=== PATIENT | female | born 1950 | race Two or more races ===

== ENCOUNTER 2018-05-29 19:12 | Inpatient (IN) | payer BC, MEDICARE, OTHER ==
[~2018-05-29] VITALS: Ht 157.5 cm; Wt 51.3 kg
[~2018-05-29 19:12] MED LIST: VANCOMYCIN 0.75 GM in IV NS 0.9% 250 ML IV SCH
--- NOTE | 2018-05-29 19:17 | NUR ---
PT BIBRA FOR FEVER,TACHYCARDIA. PER EMS, PT WAS FOUND ON THE GROUND, TACHYCARDIC, WARM TO THE TOUCH. PT PUT ON THE VENEER GLUE JOINTER FEEDBACK AND PULSE OX. PT RESPIRATIONS TACHYPNIC, SATURATION 94% ON ROOM AIR. PT TACHYCARDIC IN 140S, PT WARM TO THE TOUCH, AXO4. LIBRADO SULTANA FROM ER .
[2018-05-29] MEDS ORDERED: PIPERACILLIN /TAZOBACTAM 3.375 G in IV D5W 50 ML IV ONE (19:30)
[2018-05-29] MEDS ORDERED: IV NS 0.9% 1,000 ML BAG IV ONE (19:30)
--- NOTE | 2018-05-29 19:30 | NUR ---
BLOOD SENT TO LAB.
[2018-05-29 19:39] LABS: BASOPHILS % (AUTO) 0.1 % (0.0-2.0); EOSINOPHILS % (AUTO) 1.6 % (0.0-6.0); HEMATOCRIT 31 % (33-45); HEMOGLOBIN 10.1 g/dL (11.5-14.8); LYMPHOCYTES # (AUTO) 0.1 /CMM (0.8-4.8); LYMPHOCYTES % (AUTO) 2.1 % (20.0-44.0); MEAN CORPUSCULAR HGB CONC 32 g/dl (31.0-36.0); MEAN CORPUSCULAR VOLUME 91 fL (82-100); MONOCYTES % (AUTO) 0.7 % (2.0-12.0); NEUTROPHILS # (AUTO) 4.8 /CMM (1.8-8.9); NEUTROPHILS % (AUTO) 95.5 % (43.0-81.0); PLATELET COUNT (AUTO) 58 /CMM (150-450); RED BLOOD CELL COUNT(AUTO) 3.44 MIL/uL (4.0-5.2)
[2018-05-29] MEDS ORDERED: PIPERACILLIN /TAZOBACTAM 3.375 G VIAL IV ONE (19:42)
[2018-05-29 19:48] LABS: CALCIUM, SERUM 7.6 mg/dL (8.5-10.1); CARBON DIOXIDE 16 mmol/L (21-32); CHLORIDE 102 mmol/L (98-107); CREATININE 0.9 mg/dL (0.6-1.3); GLUCOSE 146 mg/dL (74-106); POTASSIUM 3.8 mmol/L (3.5-5.1); SODIUM SERUM 132 mmol/L (136-145); UREA NITROGEN, BLOOD 13 mg/dL (7-18)
[2018-05-29 19:54] LABS: ALANINE AMINOTRANSFERASE 18 U/L (12-78); ALBUMIN 1.8 g/dL (3.4-5.0); ALKALINE PHOSPHATASE 324 U/L (46-116); ASPARTATE AMINOTRANSFERASE 20 U/L (15-37); BILIRUBIN,DIRECT 0.4 mg/dL (0.0-0.2); BILIRUBIN,TOTAL 0.7 mg/dL (0.2-1.0); TOTAL PROTEIN, SERUM 5.4 g/dL (6.4-8.2)
--- NOTE | 2018-05-29 19:55 | NUR ---
XRAY AT BEDSIDE.
--- NOTE | 2018-05-29 20:20 | NUR ---
URINE SAMPLE OBTAINED, SENT TO LAB.
[2018-05-29 21:00] LABS: APPEARANCE,URINE Slightly Cloudy (CLEAR); BILIRUBIN,URINE Negative (NEGATIVE); BLOOD, URINE Large Ery/uL (NEGATIVE); COLOR,URINE Yellow (YELLOW); KETONES,URINE Negative (NEGATIVE); LEUKOCYTE ESTERASE ,URINE Moderate (NEGATIVE); NITRITE, URINE Positive (NEGATIVE); PROTEIN,URINE 30 mg/dl (NEGATIVE); UGLUCOSE Negative (NEGATIVE); UROBILINOGEN,URINE 0.2 EU/dL (0.2)
[2018-05-29 21:14] LABS: BACTERIA,URINE 2+ /HPF (None Seen); SQUAMOUS EPITHELIAL CELL,UR Moderate /HPF (None Seen); WBC,URINE 51-80 /HPF (0-3)
--- NOTE | 2018-05-29 21:19 | NUR ---
RADIOLOGY AT BEDSIDE. PT REFUSING CT. ER MD AWARE.
[2018-05-29 21:40] LABS: BAND % (MANUAL) 5 % (0.0-5.0); LYMPHOCYTES % (MANUAL) 4 % (16-48); MONOCYTES % (MANUAL) 3 % (0-11.0); NEUTROPHILS % (MANUAL) 88 (42-76)
[2018-05-29] MEDS ORDERED: VANCOMYCIN 500 MG VIAL ONE (21:57)
[2018-05-29] MEDS ORDERED: MAG HYDROX/AL HYDROX/SIMETH 30 ML UDC PO PRN (22:00)
[2018-05-29] MEDS ORDERED: HYDROCODONE/APAP 5/325MG 1 EACH TABLET PO PRN (22:00)
[2018-05-29] MEDS ORDERED: IV NS 0.9% 1,000 ML IV PRN ×2 (22:00)
[2018-05-29] MEDS ORDERED: ZOLPIDEM TARTRATE 5 MG TABLET PO PRN (22:00)
[2018-05-29] MEDS ORDERED: MAGNESIUM HYDROXIDE 30 ML UDC PO PRN (22:00)
[2018-05-29] MEDS ORDERED: ONDANSETRON HCL/PF - ER 4 MG/2 ML VIAL IV ONE (22:00)
[2018-05-29] MEDS ORDERED: Z GUARD REMEDY 2 OZ OINT TP PRN (22:00)
[2018-05-29] MEDS ORDERED: ALBUTEROL FS 2.5 MG/3 ML VIAL.NEB NEB PRN (22:00)
[2018-05-29] MEDS ORDERED: VANCOMYCIN 500 MG VIAL IV ONE (22:00)
--- NOTE | 2018-05-29 22:00 | NUR ---
REPORT GIVEN TO JOAQUIM GAITAN FOR VIRI.
[2018-05-29] MEDS ORDERED: VANCOMYCIN 1 GM in IV NS 0.9% 250 ML IV ONE (22:30)
--- NOTE | 2018-05-29 22:51 | NUR ---
NURSE NOTE RECEIVED PT FROM ER VIA LEDARDEVORA ACCOMPANIED BY ER STAFF. PT IS AXOX4 ABLE TO MAKE NEEDS KNOWN. PT HAS R UPPER PICC LINE, PATENT AND INTACT WITH IVF INFUSING, PLACED BY ER NURSE. CURRENT VITALS ARE 74/37, 116, 18, 98.7, 96% ON RA. WILL LET DR. DIAZ KNOW PT HAS ARRIVED TO FLOOR. PT REFUSED BODY CHECK. ALL CURRENT NEEDS ATTENDED TO. SAFETY MEASURES IN PLACE: BED LOW LOCKED, UPPER RAILS UP, AND CALL LIGHT WITHIN REACH. WILL CONT. CLOSE MONITORING.
--- NOTE | 2018-05-29 23:25 | NUR ---
RN NOTES: CLARIFY WITH MD, HER ADMITTING ORDER IS TELE TD- NOTIFIED MD THAT PT'S BP WAS 74/37, RECHECK 64/38, PLACED PT ON T-MARSHA POSITION THEN RECHECK AFTER 15MINS, BOLUS ONGOING, RESULT IS 82/45MMHG. PER AUTOCAD OPERATOR EPIC PT WILL GO TO [facility] OR ICU, MD AWARE. SITE MANAGER NOTIFIED, CONTACTED RN SAW CLEANER,WILL RECHECK BP MANUALLY, 79/44 RIGHT ARM, 78/44 LEFT ARM. PT WILL GO TO ICU PER
--- NOTE | 2018-05-29 23:40 | NUR ---
NURSE NOTE PT. SAFELY TRANSFERRED TO ICU. REPORT GIVEN TO ARGENIS CHARGE NURSE.
[2018-05-30] VITALS (33 sets, daily range): BP systolic 79–116; BP diastolic 38–72
[2018-05-30] MEDS: ACETAMINOPHEN 325 MG TABLET PO PRN ×3 (00:22→14:39)
[2018-05-30] MEDS ORDERED: NOREPINEPHRINE 16 MG in IV D5W 500 ML IV PRN (00:30)
--- NOTE | 2018-05-30 01:04 | NUR ---
RN NOTES RECEIVED PATIENT FROM ARNIE ACEVEDO, IN BED AWAKE, ALERT AND ORIENTED. ABLE TO COMMUNICATE NEEDS VERBALLY. NO DISTRESS NOTED. BREATHING EVEN AND UNLABORED. ON 2 LPM O2 VIA NASAL CANNULA TOLERATING WELL. NO COMPLAINT OF PAIN OF THIS TIME. UNABLE TO DO SKIN ASSESSMENT. PATIENT REFUSED. VITAL SIGNS WNL. AFEBRILE WITH SKIN WARM AND DRY TO TOUCH. NEEDS ATTENDED. KEPT CLEAN AND DRY.
[2018-05-30] MEDS: IV NS 0.9% 1,000 ML IV PRN ×2 (01:30→07:05)
[2018-05-30] MEDS ORDERED: VANCOMYCIN 1 GM VIAL ONE (01:33)
--- NOTE | 2018-05-30 01:35 | NUR ---
APPLICATIONS CHEMIST. RECEIVED THE PT FROM MED/SUG .LOW BP. PT AWAKE, ALERT, FOLLOW COMMANDS. TESTING MACHINE OPERATOR SHOWING S TACH. TEMPERATURE 97.5. PT HAS SACRAL WOUND PER PT. PT REFUSED TAKE THE WOUND PICTURE, PT HAS LT SIDE COLOSTOMY BAG INTACT. PT IS VERY DEMANDING. SHE NEED SAME COLOSTOMY BAG. SHE WANTS LEAVE FROM THIS HOSPITAL. . COMPLAINT ABOUT ELECTRODES, I EXPLANT ABOUT METAL STAMPING MACHINE OPERATOR ING. DR DIAZ MADE AWARE. INF 2L BOLUS GIVEN. WILL CONTINUE TO MONITOR VITALS.
[2018-05-30] MEDS: ONDANSETRON HCL/PF 4 MG/2 ML VIAL IVP PRN ×2 (01:45→09:35)
[2018-05-30 05:04] LABS: BASOPHILS % (AUTO) 0.3 % (0.0-2.0); EOSINOPHILS % (AUTO) 0.3 % (0.0-6.0); HEMATOCRIT 28 % (33-45); HEMOGLOBIN 8.9 g/dL (11.5-14.8); LYMPHOCYTES # (AUTO) 0.4 /CMM (0.8-4.8); LYMPHOCYTES % (AUTO) 3.8 % (20.0-44.0); MEAN CORPUSCULAR HGB CONC 32 g/dl (31.0-36.0); MEAN CORPUSCULAR VOLUME 92 fL (82-100); MONOCYTES # (AUTO) 0.6 /CMM (0.1-1.30); MONOCYTES % (AUTO) 5.7 % (2.0-12.0); NEUTROPHILS # (AUTO) 9.8 /CMM (1.8-8.9); NEUTROPHILS % (AUTO) 89.9 % (43.0-81.0); PLATELET COUNT (AUTO) 70 /CMM (150-450); WHITE BLOOD COUNT (AUTO) 10.9 K/uL (4.3-11.0)
[2018-05-30 05:15] LABS: CREATININE 0.7 mg/dL (0.6-1.3); MAGNESIUM 1.4 mg/dL (1.8-2.4); POTASSIUM 3.8 mmol/L (3.5-5.1)
[2018-05-30] MEDS ORDERED: Sodium Phosphate 15 MMOL in IV D5W 250 ML IV ONE (06:00)
[2018-05-30] MEDS ORDERED: Calcium Gluconate 1GM/10ML 4.65 MEQ in IV NS 0.9% 50 ML IV ONE (06:00)
--- NOTE | 2018-05-30 06:28 | NUR ---
RN NOTES PATIENT REFUSED TO BE CLEAN. REFUSED TO CHANGE COLOSTOMY BAG. LOOKING FOR THE SAME COLOSTOMY BAG SHE IS WEARING, SHE IS AFRAID OTHER COLOSTOMY BAG THAT SHE IS WEARING WILL LEAK. SHE WANTS TO BE CLEAN AT 8AM. PATIENT SAID SHE STILL WANTS TO SLEEP. NO SKIN ASSESSMENT DONE YET PATIENT CONTINUOUSLY REFUSED TO BE ASSESSED. WILL ENDORSE TO NEXT SHIFT.
[2018-05-30] MEDS: Magnesium 1GM/D5W 100ML PREMIX 100 ML IV SCH ×3 (06:41→11:07)
[2018-05-30] MEDS ORDERED: FEE PK DOSING 1 MIN EA MC ONE (07:30)
--- NOTE | 2018-05-30 08:52 | NUR ---
WOUND CARE CONSULT: PT PRESENTS WITH ANTERIOR CHEST SKIN TEAR AND SACRAL DIMPLED AREA WITH FRAGILE SCAR, PRESENT ON ADMISSION. PT STATES WAS FOLLOWED BY PLASTIC SURGEON PREVIOUSLY FOR SACRAL WOUND BUT REFUSES SURGICAL CONSULT AT THIS TIME. PT REFUSES WOUND PHOTOS. ALL SKIN PROTECTION AND WOUND CARE RECOMMENDATIONS DISCUSSED WITH NURSING STAFF. PT DEMONSTRATES ABILITY TO ASSIST WITH TURNING AND REPOSITIONING IN BED. CURRENT ARMAND SCORE IS 14. PT IS CONTINENT. COLOSTOMY NOTED. WILL SEE PRN. HART IN AGREEMENT WITH PLAN OF CARE. Addendum: 05/30/18 at 0856 by ROLANDO ESPINOZA WNDNU Amended: Links added.
[2018-05-30] MEDS ORDERED: MAG30ORA PO (09:09)
[2018-05-30] MEDS ORDERED: POTA10CA43 PO (09:09)
[2018-05-30] MEDS ORDERED: CHOL100044 PO (09:09)
--- NOTE | 2018-05-30 10:00 | NUR ---
RN NOTE MICHELLE COWAN MADE AWARE ABOUT BLOOD CX GROWING GRAM NEG RODS. PT ON VANCOMYCIN AND RECEIVED VANCO AND ZOSYN IN ER.
[2018-05-30] MEDS ORDERED: METOCLOPRAMIDE HCL 10 MG/2 ML VIAL IV PRN (11:30)
[2018-05-30] MEDS ORDERED: PIPERACILLIN /TAZOBACTAM 3.375 G in IV D5W 50 ML IV ONE (11:30)
[2018-05-30] MEDS ORDERED: NEUTRA PHOS 1 POWD.PACKET PO SCH (12:30)
[2018-05-30] MEDS ORDERED: VANCOMYCIN 0.75 GM in IV NS 0.9% 250 ML IV SCH (13:00)
[2018-05-30] MEDS: VANCOMYCIN 0.75 GM in IV D5W 250 ML IV SCH ×2 (13:00→14:17)
--- NOTE | 2018-05-30 13:30 | NUR ---
RN NOTE DR MURILLO ORDERED TO CHECK CVP ON PT. UPON CHECKING IT WAS 13, MADE AWARE AND HE ORDERED TO STOP IV FLUIDS. LEVOPHED DRIP WAS NEVER ADMINISTERED, PT MAINTAINED BP WELL. WILL CARRY OUT AND MONITOR PT CLOSELY.
--- NOTE | 2018-05-30 15:05 | NUR ---
RN NOTE PT LEFT AMA WITH SON KATHERINE COYLE, VIA OWN TRANSPORTATION, IN STABLE CONDITION, RISKS EXPLAINED, VERBALIZED UNDERSTANDING, SHE HAS ALL OF HER DOCTORS IN [facility] SO THEY PLAN TO GO THERE STRAIGHT. PT AOX3, SIGNED AMA PAPER, ANIMAL GENETICIST MICHELLE NOTIFIED, CHARGE NURSE BETTE AWARE, NURSE TRIM MECHANIC AWARE.
[2018-05-30] MEDS ORDERED: PIPERACILLIN /TAZOBACTAM 3.375 G in IV D5W 100 ML IV SCH (16:00)
== END 2018-05-30 14:50 | disposition left against medical advice (07) | DRG 871 ==
LOC: ER 19:14 → TELE 22:01 → ICU 23:41
PROVIDERS: ADMIT Internal Medicine; ATTEND Nurse Practitioner Acute Care
DX: A41.50 Gram-negative sepsis, unspecified (principal); G93.41 Metabolic encephalopathy; I21.A1 Myocardial infarction type 2; R65.21 Severe sepsis with septic shock; E44.0 Moderate protein-calorie malnutrition; E87.1 Hypo-osmolality and hyponatremia; N39.0 Urinary tract infection, site not specified; E87.2 Acidosis; Z85.038 Personal history of other malignant neoplasm of large intestine; Z93.3 Colostomy status; E78.5 Hyperlipidemia, unspecified; I11.0 Hypertensive heart disease with heart failure; I50.9 Heart failure, unspecified; E86.0 Dehydration; K13.79 Other lesions of oral mucosa; E83.42 Hypomagnesemia; B96.89 Other specified bacterial agents as the cause of diseases classified elsewhere; S30.91XA Unspecified superficial injury of lower back and pelvis, initial encounter
CPT/HCPCS: 36415; 71045-TC; 80048-TC; 80061-TC; 80076-TC; 81000-TC; 83605-TC; 83735-TC; 84100-TC; 84484-TC; 85025-TC; 85730-TC; 87040-TC; 87081-TC; 87086-TC; 87186-TC; A4216; A4217; A6253; A6402; A6403; A9563; G0378; J0610; J2405; J2543; J3370; J3475; J7030; J7040; J7050; J7060